=== PATIENT | male | born 1980 | race Two or more races ===

== ENCOUNTER 2016-09-24 15:46 | Emergency (ER) | payer SELFPAY ==
[~2016-09-24] VITALS: Ht 170.2 cm; Wt 79.4 kg
[2016-09-24 15:46] VITALS: BP 134/89
--- NOTE | 2016-09-24 16:12 | PHYS DOC ---
Past Medical History Past Medical History: Diabetes-Type II Past Surgical History: No Surgical History Additional Information: nonsmoker Alcohol Use: Occasionally Drug Use: None Adult General Chief Complaint Chief Complaint: FINGER INJURY HPI HPI Patient is a 36 year old male who presents with left index finger pain and swelling for 3 days. He works in [employer] and they thought there was a splinter near the nail. They removed it appeared to be part of the splinter at home. He had increased pain and swelling today. He denies any fevers. His tetanus immunization is up-to-date. He sees a PCP at [facility]. Review of Systems Review of Systems Constitutional: Denies fever or chills. [] Musculoskeletal: Denies back pain or joint pain. Reports left index finger pain and swelling. Integument: Denies rash or skin lesions. Reports paronychia of left index finger. Neurologic: Denies focal weakness or sensory changes. [] Current Medications Current Medications Current Medications Medications (Trade) Dose Ordered Sig/Wil Start Time Stop Time Status Last Admin Dose Admin Bupivacaine HCl (Marcaine 0.5%) 50 ml 1X ONCE 09/24/16 16:15 09/24/16 16:16 DC 09/24/16 16:29 50 ML Allergies Allergies Allergies Coded Allergies Type Severity Reaction Last Updated Verified No Known Drug Allergies 12/04/14 No Physical Exam Physical Exam Constitutional: Well developed, well nourished, no acute distress, non-toxic appearance. [] HENT: Normocephalic, atraumatic, oropharynx moist. [] Eyes: PERRLA, EOMI, conjunctiva normal, no discharge. [] Skin: Warm, dry, no erythema, no rash. There is paronychia of the left index finger without cellulitis or felon. Extremities: Distal left index finger tenderness, ROM intact, mild edema. Less than 2 second capillary refill distally. Light touch sensation intact distally. No evidence of tenosynovitis. Neurologic: Alert and oriented X 3, normal motor function, normal sensory function, no focal deficits noted. [] Psychologic: Affect normal, judgement normal, mood normal. [] Current Patient Data Vital Signs Vital Signs Date Time Temp Pulse Resp B/P Pulse Ox O2 Delivery O2 Flow Rate FiO2 09/24/16 15:46 97.4 84 18 98 Room Air 97.4 EKG EKG [] Radiology/Procedures Radiology/Procedures REASON: pain, injury PROCEDURE: FINGER(S) LEFT Left index finger, 3 views, 09/24/2016: History: Pain, injury No fracture or dislocation is identified. The soft tissues are unremarkable. IMPRESSION: No significant abnormality is detected. Course & Med Decision Making Course & Med Decision Making Pertinent Labs and Imaging studies reviewed. (See chart for details) Patient presents with paronychia to the left index finger radial side. The wound was anesthetized using digital block using 0.5% bupivicaine. The wound was cleaned using chlorhexidine scrub. A #11 blade was used to incise the wound with moderate amount of purulent drainage from the wound. A dressing was applied. The patient tolerated the procedure well. Dragon Disclaimer Dragon Disclaimer This electronic medical record was generated, in whole or in part, using a voice recognition dictation system. Departure Departure Impression: Primary Impression: Paronychia of finger of left hand Disposition: 01 HOME, SELF-CARE Condition: IMPROVED Referrals: NO PCP (PCP) Patient Instructions: Paronychia, [id number] Additional Instructions: You were seen for an infection in your finger near the fingernail. The infection was drained. Please complete all of the prescribed antibiotics, even if your finger is better. Please follow-up with your primary care provider within the next week. Return to the emergency department if you have increased pain, swelling, redness , fever, or other new or concerning symptoms. Scripts Sulfamethoxazole/Trimethoprim (Bactrim Ds Tablet)1 Each Tablet1 Tab PO BID #14 TAB Prov:VIVIANA FRANCO 09/24/16 VIVIANA FRANCO Sep 24, 2016 16:12
[2016-09-24] MEDS ORDERED: BUPIVACAINE 0.5% 50 ML VIAL. IJ ONE (16:15)
[2016-09-24] MEDS ORDERED: SULF1TAB24 PO (17:02)
== END 2016-09-24 17:11 | disposition home or self-care (01) ==
LOC: ER 15:46
DX: L03.012 Cellulitis of left finger (principal); E11.9 Type 2 diabetes mellitus without complications
CPT/HCPCS: 10060; 73140; 99284; J3490

== ENCOUNTER 2017-05-03 17:19 | Emergency (ER) | payer SELFPAY ==
[~2017-05-03] VITALS: Ht 167.6 cm; Wt 72.6 kg
[~2017-05-03 17:19] MED LIST: SULF1TAB24 PO
--- NOTE | 2017-05-03 17:31 | PHYS DOC ---
Past Medical History Past Medical History: Diabetes-Type II Past Surgical History: No Surgical History Alcohol Use: Occasionally Drug Use: None Adult General Chief Complaint Chief Complaint: SEXUALLY TRANSMITTED DISEASE HPI HPI Patient is a 36 year old [f__sex] who presents with [] Review of Systems Review of Systems Constitutional: Denies fever or chills [] Eyes: Denies change in visual acuity, redness, or eye pain [] HENT: Denies nasal congestion or sore throat [] Respiratory: Denies cough or shortness of breath [] Cardiovascular: No additional information not addressed in HPI [] GI: Denies abdominal pain, nausea, vomiting, bloody stools or diarrhea [] : Denies dysuria or hematuria [] Musculoskeletal: Denies back pain or joint pain [] Integument: Denies rash or skin lesions [] Neurologic: Denies headache, focal weakness or sensory changes [] Endocrine: Denies polyuria or polydipsia [] Allergies Allergies Allergies Coded Allergies Type Severity Reaction Last Updated Verified No Known Drug Allergies 12/04/14 No Physical Exam Physical Exam Constitutional: Well developed, well nourished, no acute distress, non-toxic appearance. [] HENT: Normocephalic, atraumatic, bilateral external ears normal, oropharynx moist, no oral exudates, nose normal. [] Eyes: PERRLA, EOMI, conjunctiva normal, no discharge. [] Neck: Normal range of motion, no tenderness, supple, no stridor. [] Cardiovascular:Heart rate regular rhythm, no murmur [] Lungs & Thorax: Bilateral breath sounds clear to auscultation [] Abdomen: Bowel sounds normal, soft, no tenderness, no masses, no pulsatile masses. [] Skin: Warm, dry, no erythema, no rash. [] Back: No tenderness, no CVA tenderness. [] Extremities: No tenderness, no cyanosis, no clubbing, ROM intact, no edema. [] Neurologic: Alert and oriented X 3, normal motor function, normal sensory function, no focal deficits noted. [] Psychologic: Affect normal, judgement normal, mood normal. [] EKG EKG [] Radiology/Procedures Radiology/Procedures [] Course & Med Decision Making Course & Med Decision Making Pertinent Labs and Imaging studies reviewed. (See chart for details) [] Dragon Disclaimer Dragon Disclaimer This electronic medical record was generated, in whole or in part, using a voice recognition dictation system. Departure Departure Referrals: NO PCP (PCP) VINCENZO GONSALEZ MD May 03, 2017 17:31
[2017-05-03 17:35] VITALS: BP 148/83
[2017-05-03] MEDS ORDERED: CLOT15CR4 TP (17:49)
--- NOTE | 2017-05-03 17:49 | PHYS DOC ---
Past Medical History Past Medical History: Diabetes-Type II Past Surgical History: No Surgical History Alcohol Use: Occasionally Drug Use: None Adult General Chief Complaint Chief Complaint: SEXUALLY TRANSMITTED DISEASE HPI HPI Patient is a 36 year old male presents to the emergency department with complaints of pain in the distal penis. Patient is Upper Sor[place]-speaking and interpretation line is utilized to assist with interpreting. Patient states for 2 months he has had sores on the aunt of his penis. He states that the skin is putting. It hurts to pull the foreskin back he states he has mild burning with urination. Review of Systems Review of Systems Constitutional: Denies fever or chills [] Eyes: Denies change in visual acuity, redness, or eye pain [] HENT: Denies nasal congestion or sore throat [] Respiratory: Denies cough or shortness of breath [] Cardiovascular: No additional information not addressed in HPI [] GI: Denies abdominal pain, nausea, vomiting, bloody stools or diarrhea [] : Dysuria, genital lesion Musculoskeletal: Denies back pain or joint pain [] Integument: Denies rash or skin lesions [] Neurologic: Denies headache, focal weakness or sensory changes [] Endocrine: Denies polyuria or polydipsia [] Allergies Allergies Allergies Coded Allergies Type Severity Reaction Last Updated Verified No Known Drug Allergies 12/04/14 No Physical Exam Physical Exam Constitutional: Well developed, well nourished, no acute distress, non-toxic appearance. [] Neck: Normal range of motion, no tenderness, supple without lymphadenopathy, no stridor. [] Cardiovascular:Heart rate regular rhythm, no murmur [] Lungs & Thorax: Bilateral breath sounds clear to auscultation [] Abdomen: Bowel sounds normal, soft, no tenderness, no masses, no pulsatile masses. : Penis with mild swelling, there are fissures with a thick white coating [ ] Skin: Warm, dry, no erythema, no rash. [] Back: No tenderness, no CVA tenderness. [] Extremities: No tenderness, no cyanosis, no clubbing, ROM intact, no edema. [] Neurologic: Alert and oriented X 3, normal motor function, normal sensory function, no focal deficits noted. [] Psychologic: Affect normal, judgement normal, mood normal. [] EKG EKG [] Radiology/Procedures Radiology/Procedures [] Course & Med Decision Making Course & Med Decision Making Pertinent Labs and Imaging studies reviewed. (See chart for details) [] Dragon Disclaimer Dragon Disclaimer This electronic medical record was generated, in whole or in part, using a voice recognition dictation system. Departure Departure Impression: Primary Impression: Yeast dermatitis of penis Disposition: 01 HOME, SELF-CARE Condition: STABLE Referrals: NO PCP (PCP) [facility] Patient Instructions: Yeast Infection of the Skin, [id number] Scripts Clotrimazole (CLOTRIMAZOLE) 15 Gm Cream..g. 1 NOÉ YEFRI NOGUEIRA, #45 GM Prov: KIARA CHRISTOPHER APRN 05/03/17 KIARA CHRISTOPHER APRN May 03, 2017 17:49
[2017-05-03 17:58] LABS: BILIRUBIN,URINE NEGATIVE (NEG); GLUCOSE,URINE >=1000 mg/dL (NEG); NITRITE,URINE NEGATIVE (NEG); PH,URINE 5.5; PROTEIN,URINE NEGATIVE (NEG-TRACE); UROBILINOGEN,URINE 0.2 mg/dL (0.2 mg/dL)
[2017-05-03 18:17] LABS: BACTERIA,URINE FEW /HPF (0-FEW); RBC,URINE 0 /HPF (0-2); SQUAMOUS EPITHELIAL CELL,UR FEW /LPF; YEAST,URINE PRESENT /HPF
== END 2017-05-03 17:56 | disposition home or self-care (01) ==
LOC: ER 17:19
DX: B37.49 Other urogenital candidiasis (principal); E11.9 Type 2 diabetes mellitus without complications
CPT/HCPCS: 81001; 87086; 99284